=== PATIENT | female | born 1990 | race Caucasian/White ===

== ENCOUNTER 2017-05-22 19:16 | Emergency (ER) | payer SELFPAY ==
[2017-05-22 19:16] VITALS: BMI 30.9
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
[2017-05-22 21:18] VITALS: BP 119/74; PULSE 75; RESP 18; TEMP 98; O2SAT 97
== END 2017-05-22 21:17 | disposition home or self-care (01) ==
LOC: C.ER 19:16
DX: S09.90XA Unspecified injury of head, initial encounter (principal); W22.8XXA Striking against or struck by other objects, initial encounter; Y92.815 Train as the place of occurrence of the external cause